=== PATIENT | male | born 1985 | race Caucasian/White ===

== ENCOUNTER 2022-10-29 11:23 | Outpatient (CLI) | payer OTHER, SELFPAY ==
[2022-11-01 04:09] LABS: Immunoglobulin A 241 mg/dL (47-310); TTG IGA AB <1.0 U/mL (<15.0)
== END 2022-10-29 11:24 | disposition home or self-care (01) ==
PROVIDERS: PCP Family Medicine; Visit Provider Nurse Practitioner Family
DX: K58.0 Irritable bowel syndrome with diarrhea (principal)
CPT/HCPCS: 36415; 82784; 86364

== ENCOUNTER 2022-11-08 00:52 | Day surgery (SDC) | payer OTHER, SELFPAY ==
[2022-10-31 09:23] VITALS: BMI 30.8
[2022-11-08 09:52] VITALS: BP 124/82; PULSE 92; RESP 18; TEMP 36.2; O2SAT 99
[2022-11-08] MEDS: LACTATED RINGERS 1,000 ML 150 ML IV CONT (10:02)
--- NOTE | 2022-11-08 10:06 | WPDHPUPDATE1 ---
History and Physical Update Update Date/Time: 11/08/22 10:06 History and Physical has been reviewed, including an updated exam of the patient. There are NO changes in the patient's condition. Risks, benefits, and alternatives have been discussed and questions answered. Patient agrees to proceed with procedure.
[2022-11-08 10:23] VITALS: BP 101/69; PULSE 84; RESP 14; O2SAT 95
[2022-11-08 10:33] VITALS: BP 100/68; PULSE 78; RESP 17; O2SAT 97
[2022-11-08 10:43] VITALS: BP 109/68; PULSE 70; RESP 16; O2SAT 97
== END 2022-11-08 10:55 | disposition home or self-care (01) ==
PROVIDERS: PCP Family Medicine; Visit Provider Internal Medicine Gastroenterology
PROC: 0DJD8ZZ Inspection of Lower Intestinal Tract, Via Natural or Artificial Opening Endoscopic (ICD-10-PCS; CPT 45378; principal; 2022-11-08 11:30)
DX: K58.0 Irritable bowel syndrome with diarrhea (principal)
CPT/HCPCS: 45380; 88305; J2704; J7120